=== PATIENT | female | born 1955 | race Caucasian/White ===

== ENCOUNTER 2019-09-12 16:53 | Inpatient (IN) ==
[2019-09-12] MEDS ORDERED: D5% in Water 1,000 ML IVC PRN (22:00)
[2019-09-12] MEDS ORDERED: Dextrose Gel 15 GM/37.5 ML TUBE PO PRN ×2 (22:00)
[2019-09-12] MEDS ORDERED: *HR* Dextrose 50 % in Water (Syg) 50 ML SYRINGE IVP PRN (22:00)
[2019-09-12] MEDS ORDERED: Perflutren Lipid Microsphere 1.3 ML in 0.9 % Sodium Chloride 8.7 ML IVP ONE (22:04)
[2019-09-12] MEDS ORDERED: Insulin LISPRO 300 UNITS/3 ML VIAL SQ SCH (22:15)
[2019-09-12] MEDS ORDERED: 0.9 % Sodium Chloride 1,000 ML IVC SCH (23:45)
[2019-09-12] MEDS ORDERED: Naloxone 0.4 MG/ML INJ IVP PRN (23:50)
[2019-09-12] MEDS ORDERED: Acetaminophen 325 MG TABLET PO PRN (23:50)
[2019-09-12] MEDS ORDERED: Ondansetron 4 MG/2 ML VIAL IVP PRN (23:50)
[2019-09-13] MEDS: Levalbuterol Neb 1.25 MG/3 ML IH SCH ×5 (00:06→22:38)
[2019-09-13] MEDS: Insulin LISPRO 300 UNITS/3 ML VIAL SQ SCH ×4 (00:38→15:49)
[2019-09-13] MEDS ORDERED: 0.9 % Sodium Chloride 1,000 ML IVC SCH ×2 (00:49)
[2019-09-13 02:23] LABS: Hematocrit 34.9 % (35.3-44.9); Hemoglobin 12.2 g/dL (11.5-15.4); Mean Corpuscular Hemoglobin 30.6 pg (28.0-33.3); Mean Corpuscular Volume 87.5 fL (83.0-100.0); Mean Platelet Volume 10.2 fL (9.4-12.4); Platelet Count 144 K/mcL (140-400); Red Blood Count 3.99 M/mcL (3.82-4.97); Red Cell Distribution Width 12.4 % (11.5-14.5)
[2019-09-13 02:44] LABS: BUN/Creatinine Ratio 19 (6-26); Blood Urea Nitrogen 16 mg/dL (8-23); Calcium 8.2 mg/dL (8.6-10.3); Carbon Dioxide 24 mEq/L (23-29); Chloride 101 mEq/L (98-107); Cholesterol 182 mg/dL (< 200); Glucose 270 mg/dL (70-105); HDL Cholesterol 46 mg/dL (40-59); LDL Cholesterol,Calculated 114 mg/dL (0-99); Magnesium 1.1 mg/dL (1.6-2.6); Osmolality,Calculated 287 (280-300); Phosphorous 3.1 mg/dL (2.7-4.5); Potassium 3.4 mEq/L (3.5-5.1); Sodium 133 mEq/L (136-145); Triglycerides 111 mg/dL (< 150); eGFR For African Americans > 60 (> 60); eGFR For Non-African Americans > 60 (> 60)
[2019-09-13] MEDS ORDERED: Insulin LISPRO 300 UNITS/3 ML VIAL SQ SCH (07:30)
[2019-09-13 08:54] LABS: Troponin I 0.04 ng/mL (< 0.04)
[2019-09-13] MEDS ORDERED: *HR* FentaNYL (PF) 100 MCG/2 ML VIAL ONE ×3 (08:55→11:35)
[2019-09-13] MEDS ORDERED: *HR* Succinylcholine 200 MG/10 ML VIAL IVP ONE (08:55)
[2019-09-13] MEDS ORDERED: Ondansetron 4 MG/2 ML VIAL ONE (08:55)
[2019-09-13] MEDS ORDERED: *HR* Propofol 200 MG/20 ML VIAL IVP ONE (08:55)
[2019-09-13] MEDS ORDERED: *HR* Midazolam HCl 2 MG/2 ML VIAL ONE (08:55)
[2019-09-13] MEDS ORDERED: Lidocaine -MPF 2% 2 ML VIAL ONE (08:55)
[2019-09-13] MEDS ORDERED: *HR* HYDROmorphone (PF) 1 MG/ML SYRINGE IVP PRN ×2 (09:16→11:53)
[2019-09-13] MEDS ORDERED: *HR* Promethazine 25 MG/ML VIAL IVP PRN ×2 (09:16→11:53)
[2019-09-13] MEDS ORDERED: *HR* OxyCODONE Immed Rel 5 MG TABLET PO PRN ×2 (09:16→11:53)
[2019-09-13] MEDS ORDERED: Ringers Solution, Lactated 1,000 ML IVC SCH (09:30)
[2019-09-13] MEDS ORDERED: Potassium Chloride Elixir 20 MEQ/15 ML UDC PO SCH ×2 (09:45→13:45)
[2019-09-13] MEDS ORDERED: Ethanol\\Acetic Acid\\Na Ace\\Ben 1,000 ML IRRIG.SOLN IR ONE (09:47)
[2019-09-13] MEDS ORDERED: *HR* Rocuronium Bromide 50 MG/5 ML VIAL ONE (09:49)
[2019-09-13 09:55] LABS: Estimated Average Glucose 163 mg/dl
[2019-09-13] MEDS ORDERED: CeFAZolin Syr 2,000MG/20 ML 2,000 MG/20 ML SYRINGE IVPB ONE (10:06)
[2019-09-13] MEDS ORDERED: Lidocaine HCL 4 ML Topical Solution (Laryng-O-Jet Kit Sterile Pak) TP ONE (10:07)
[2019-09-13] MEDS ORDERED: *HR* PHENYLEPHRINE 1,000 MCG/10 ML SYRINGE IVP ONE (10:25)
[2019-09-13] MEDS ORDERED: Dexamethasone 4 MG/ML VIAL ONE (10:40)
[2019-09-13] MEDS ORDERED: Naloxone 0.4 MG/ML INJ IVP PRN (11:53)
[2019-09-13] MEDS ORDERED: Ondansetron 4 MG/2 ML VIAL IVP PRN (11:53)
[2019-09-13] MEDS ORDERED: D5% in Water 1,000 ML IVC PRN (11:53)
[2019-09-13] MEDS ORDERED: *HR* Dextrose 50 % in Water (Syg) 50 ML SYRINGE IVP PRN (11:53)
[2019-09-13] MEDS ORDERED: Acetaminophen 325 MG TABLET PO PRN (11:53)
[2019-09-13] MEDS ORDERED: Dextrose Gel 15 GM/37.5 ML TUBE PO PRN ×2 (11:53)
[2019-09-13] MEDS: Ringers Solution, Lactated 1,000 ML IVC SCH (14:04)
[2019-09-13] MEDS ORDERED: *HR* Warfarin 2.5 MG TABLET PO ONE (19:36)
[2019-09-14] MEDS: Levalbuterol Neb 1.25 MG/3 ML IH SCH ×4 (04:14→22:27)
[2019-09-14 07:52] LABS: Hematocrit 32.2 % (35.3-44.9); Hemoglobin 10.8 g/dL (11.5-15.4); Mean Corpuscular HGB Conc 33.5 g/dL (31.6-35.5); Mean Corpuscular Hemoglobin 30.1 pg (28.0-33.3); Mean Corpuscular Volume 89.7 fL (83.0-100.0); Mean Platelet Volume 10.5 fL (9.4-12.4); Platelet Count 132 K/mcL (140-400); Red Blood Count 3.59 M/mcL (3.82-4.97); Red Cell Distribution Width 12.2 % (11.5-14.5); White Blood Count 6.4 K/mcL (4.3-11.1)
[2019-09-14 08:08] LABS: BUN/Creatinine Ratio 22 (6-26); Blood Urea Nitrogen 14 mg/dL (8-23); Calcium 8.6 mg/dL (8.6-10.3); Carbon Dioxide 26 mEq/L (23-29); Chloride 100 mEq/L (98-107); Glucose 302 mg/dL (70-105); Osmolality,Calculated 288 (280-300); Potassium 4.1 mEq/L (3.5-5.1); Sodium 133 mEq/L (136-145); eGFR For African Americans > 60 (> 60); eGFR For Non-African Americans > 60 (> 60)
[2019-09-14] MEDS ORDERED: Dextrose Gel 15 GM/37.5 ML TUBE PO PRN ×2 (10:09)
[2019-09-14] MEDS ORDERED: *HR* Dextrose 50 % in Water (Syg) 50 ML SYRINGE IVP PRN (10:09)
[2019-09-14] MEDS ORDERED: D5% in Water 1,000 ML IVC PRN (10:09)
[2019-09-14 12:39] LABS: Creatine Kinase 538 Units/L (30-223); Magnesium 1.6 mg/dL (1.6-2.6)
[2019-09-14] MEDS: Insulin LISPRO 300 UNITS/3 ML VIAL SQ SCH ×3 (13:33→20:35)
[2019-09-14] MEDS: Ringers Solution, Lactated 1,000 ML IVC SCH (19:21)
[2019-09-14] MEDS: 0.9 % Sodium Chloride 1,000 ML IVC SCH ×3 (19:22→23:18)
[2019-09-14] MEDS: Gabapentin 100 MG CAPSULE PO SCH (20:34)
[2019-09-14] MEDS: Insulin DETEMIR 100 UNIT/ML X5UNITS SQ SCH (20:35)
[2019-09-15] MEDS: Levalbuterol Neb 1.25 MG/3 ML IH SCH ×4 (04:24→22:11)
[2019-09-15 05:02] LABS: Hematocrit 28.5 % (35.3-44.9); Hemoglobin 9.9 g/dL (11.5-15.4); Mean Corpuscular HGB Conc 34.7 g/dL (31.6-35.5); Mean Corpuscular Volume 86.4 fL (83.0-100.0); Mean Platelet Volume 10.6 fL (9.4-12.4); Platelet Count 137 K/mcL (140-400); Red Cell Distribution Width 12.4 % (11.5-14.5); White Blood Count 5.3 K/mcL (4.3-11.1)
[2019-09-15 05:19] LABS: BUN/Creatinine Ratio 21 (6-26); Blood Urea Nitrogen 12 mg/dL (8-23); Calcium 8.2 mg/dL (8.6-10.3); Carbon Dioxide 23 mEq/L (23-29); Chloride 102 mEq/L (98-107); Glucose 221 mg/dL (70-105); Osmolality,Calculated 281 (280-300); Potassium 3.8 mEq/L (3.5-5.1); Sodium 132 mEq/L (136-145); eGFR For African Americans > 60 (> 60); eGFR For Non-African Americans > 60 (> 60)
[2019-09-15] MEDS: 0.9 % Sodium Chloride 1,000 ML IVC SCH (09:01)
[2019-09-15] MEDS: Gabapentin 100 MG CAPSULE PO SCH ×2 (09:01→21:06)
[2019-09-15] MEDS: Insulin LISPRO 300 UNITS/3 ML VIAL SQ SCH ×4 (09:02→22:05)
[2019-09-15] MEDS ORDERED: 0.9 % Sodium Chloride 250 ML IVC ONE (17:09)
[2019-09-15 17:53] LABS: Hematocrit 28.1 % (35.3-44.9)
[2019-09-15 18:36] LABS: Bilirubin,Urine Negative (Negative); Blood,Urine Negative (Negative); Clarity,Urine Clear (Clear); Color,Urine Yellow (Yellow); Glucose,Urine (UA) 500 mg/dL (Normal); Ketones,Urine Negative (Negative); Leukocyte Esterase,Urine Negative (Negative); Nitrite,Urine Negative (Negative); Protein,Urine 30 mg/dL (Neg-Trace); Specific Gravity,Urine 1.027 (1.010-1.025)
[2019-09-15 18:50] LABS: Bacteria,Urine None Seen per hpf (None-Few); Hyaline Casts,Urine None Seen per lpf (None-Few); RBC,Urine 0-3 per hpf (0-3); Squamous Epithelial Cell,Urine Many per lpf (None-Few); WBC,Urine 0-3 per hpf (0-3)
[2019-09-15] MEDS: Insulin DETEMIR 100 UNIT/ML X5UNITS SQ SCH (22:05)
[2019-09-16] MEDS: 0.9 % Sodium Chloride 1,000 ML IVC SCH ×2 (02:21→09:17)
[2019-09-16] MEDS: Levalbuterol Neb 1.25 MG/3 ML IH SCH ×4 (03:17→21:11)
[2019-09-16 04:48] LABS: Hematocrit 30.2 % (35.3-44.9); Hemoglobin 10.6 g/dL (11.5-15.4)
[2019-09-16] MEDS: Insulin LISPRO 300 UNITS/3 ML VIAL SQ SCH ×4 (07:58→21:05)
[2019-09-16] MEDS: *HR* Enoxaparin 40 MG/0.4 ML SYRINGE SQ SCH (09:04)
[2019-09-16] MEDS: Gabapentin 100 MG CAPSULE PO SCH ×2 (09:05→21:05)
[2019-09-16] MEDS: Insulin DETEMIR 100 UNIT/ML X5UNITS SQ SCH (21:06)
[2019-09-17] MEDS: Levalbuterol Neb 1.25 MG/3 ML IH SCH ×4 (03:51→22:25)
[2019-09-17] MEDS: *HR* Enoxaparin 40 MG/0.4 ML SYRINGE SQ SCH (05:49)
[2019-09-17] MEDS: Gabapentin 100 MG CAPSULE PO SCH (09:03)
[2019-09-17] MEDS: Acetaminophen 325 MG TABLET PO PRN ×2 (09:10→17:17)
[2019-09-17] MEDS: Insulin LISPRO 300 UNITS/3 ML VIAL SQ SCH ×4 (09:11→21:30)
[2019-09-17 12:10] LABS: Hematocrit 30.4 % (35.3-44.9); Hemoglobin 10.6 g/dL (11.5-15.4)
[2019-09-17] MEDS: Insulin DETEMIR 100 UNIT/ML X5UNITS SQ SCH (21:30)
[2019-09-18] MEDS: Levalbuterol Neb 1.25 MG/3 ML IH SCH ×4 (03:51→22:32)
[2019-09-18] MEDS: *HR* Enoxaparin 40 MG/0.4 ML SYRINGE SQ SCH (06:06)
[2019-09-18] MEDS: Acetaminophen 325 MG TABLET PO PRN (08:35)
[2019-09-18] MEDS: Insulin LISPRO 300 UNITS/3 ML VIAL SQ SCH ×4 (08:35→21:17)
[2019-09-18] MEDS: Insulin DETEMIR 100 UNIT/ML X5UNITS SQ SCH (21:22)
[2019-09-19] MEDS: Levalbuterol Neb 1.25 MG/3 ML IH SCH ×3 (04:18→15:16)
[2019-09-19] MEDS: *HR* Enoxaparin 40 MG/0.4 ML SYRINGE SQ SCH (06:00)
[2019-09-19] MEDS: Insulin LISPRO 300 UNITS/3 ML VIAL SQ SCH ×3 (08:06→17:40)
[2019-09-19 14:25] VITALS: BP 95/61
== END 2019-09-19 18:34 | disposition home health service (06) | DRG 301 ==
LOC: 3ANU → SUATTDRO 23:58
PROVIDERS: ADMIT Internal Medicine; ATTEND Internal Medicine

== ENCOUNTER 2021-11-19 17:15 | Inpatient (IN) ==
[2021-11-19] MEDS ORDERED: Acetaminophen 325 MG TABLET PO PRN (20:57)
[2021-11-19] MEDS ORDERED: Ondansetron ODT 4 MG TAB.RAPDIS SL PRN (20:57)
[2021-11-19] MEDS ORDERED: Naloxone 0.4 MG/ML INJ IVP PRN (20:57)
[2021-11-19] MEDS ORDERED: *HR* Heparin 5,000 UNIT/ML VIAL IVP PRN ×2 (20:59)
[2021-11-19] MEDS: Heparin 25,000UNIT/250ML 1/2NS 25,000 UNIT/250 ML IV.SOLN IVC SCH (21:28)
[2021-11-19] MEDS ORDERED: Dextrose Gel 15 GM/37.5 ML TUBE PO PRN ×2 (22:51)
[2021-11-19] MEDS ORDERED: *HR* Dextrose 50 % in Water (Syg) 50 ML SYRINGE IVP PRN (22:51)
[2021-11-19] MEDS ORDERED: D5% in Water 1,000 ML IVC PRN (22:51)
[2021-11-20] MEDS: Insulin LISPRO 300 UNITS/3 ML VIAL SUBQ SCH ×4 (00:01→17:50)
[2021-11-20 06:45] LABS: Basophils % 0.6 %; Eosinophils # 0.1 K/mcL (0.0-0.6); Eosinophils % 1.9 %; Hematocrit 35.6 % (35.3-44.9); Hemoglobin 11.5 g/dL (11.5-15.4); Immature Granulocytes % 0.2 % (0-4); Lymphocytes # 1.6 K/mcL (0.6-4.6); Lymphocytes % 35.3 %; Mean Corpuscular HGB Conc 32.3 g/dL (31.6-35.5); Mean Corpuscular Hemoglobin 27.8 pg (28.0-33.3); Mean Corpuscular Volume 86.2 fL (83.0-100.0); Mean Platelet Volume 10.3 fL (9.4-12.4); Monocytes # 0.3 K/mcL (0.0-1.3); Monocytes % 6.7 %; Neutrophils # 2.6 K/mcL (1.6-8.9); Platelet Count 152 K/mcL (140-400); Red Blood Count 4.13 M/mcL (3.82-4.97); Red Cell Distribution Width 13.2 % (11.5-14.5); Segmented Neutrophils % 55.3 %; White Blood Count 4.6 K/mcL (4.3-11.1)
[2021-11-20] MEDS ORDERED: Perflutren Lipid Microsphere 1.3 ML in 0.9 % Sodium Chloride 8.7 ML IVP PRN (07:42)
[2021-11-20 07:49] LABS: BUN/Creatinine Ratio 19 (6-26); Blood Urea Nitrogen 18 mg/dL (8-23); Calcium 9.1 mg/dL (8.6-10.3); Carbon Dioxide 26 mEq/L (23-29); Chloride 103 mEq/L (98-107); Glucose 137 mg/dL (70-105); Magnesium 1.6 mg/dL (1.6-2.6); Osmolality,Calculated 292 (280-300); Potassium 3.6 mEq/L (3.5-5.1); Sodium 139 mEq/L (136-145); eGFR For African Americans > 60 (> 60); eGFR For Non-African Americans 57 (> 60)
[2021-11-20] MEDS: Furosemide 40 MG TABLET PO SCH (17:50)
[2021-11-20] MEDS: Budesonide/Formoterol 80/4.5 1 PUFF INH IH SCH (20:11)
[2021-11-20] MEDS: Heparin 25,000UNIT/250ML 1/2NS 25,000 UNIT/250 ML IV.SOLN IVC SCH (20:38)
[2021-11-20] MEDS: QUEtiapine Fumarate 100 MG TABLET PO SCH (20:43)
[2021-11-20] MEDS ORDERED: Insulin DETEMIR 100 UNIT/ML X5UNITS SUBQ SCH (21:00)
[2021-11-20] MEDS ORDERED: *HR* LORazepam 2 MG/ML VIAL IVP ONE (23:07)
[2021-11-21] MEDS: Insulin LISPRO 300 UNITS/3 ML VIAL SUBQ SCH ×4 (00:03→16:54)
[2021-11-21 05:38] LABS: Hematocrit 32.8 % (35.3-44.9); Mean Corpuscular HGB Conc 33.5 g/dL (31.6-35.5); Mean Corpuscular Hemoglobin 28.8 pg (28.0-33.3); Mean Corpuscular Volume 85.9 fL (83.0-100.0); Mean Platelet Volume 10.1 fL (9.4-12.4); Platelet Count 149 K/mcL (140-400); Red Blood Count 3.82 M/mcL (3.82-4.97); Red Cell Distribution Width 13.1 % (11.5-14.5); White Blood Count 4.3 K/mcL (4.3-11.1)
[2021-11-21 06:02] LABS: BUN/Creatinine Ratio 20 (6-26); Blood Urea Nitrogen 19 mg/dL (8-23); Calcium 8.8 mg/dL (8.6-10.3); Carbon Dioxide 26 mEq/L (23-29); Chloride 101 mEq/L (98-107); Glucose 153 mg/dL (70-105); Osmolality,Calculated 289 (280-300); Potassium 3.7 mEq/L (3.5-5.1); Sodium 137 mEq/L (136-145); eGFR For African Americans > 60 (> 60); eGFR For Non-African Americans 57 (> 60)
[2021-11-21] MEDS ORDERED: Haloperidol Lactate 5 MG/ML VIAL IVP PRN (07:31)
[2021-11-21] MEDS: Furosemide 40 MG TABLET PO SCH (08:54)
[2021-11-21] MEDS: QUEtiapine Fumarate 25 MG TABLET PO SCH (08:54)
[2021-11-21] MEDS: Tiotropium 10 INH DOSE IH SCH (11:29)
[2021-11-21] MEDS: Budesonide/Formoterol 80/4.5 1 PUFF INH IH SCH ×2 (11:30→20:02)
[2021-11-21] MEDS: Apixaban 5 MG TABLET PO SCH ×2 (11:47→19:58)
[2021-11-21] MEDS: Melatonin 3 MG TABLET PO PRN (19:58)
[2021-11-21] MEDS: QUEtiapine Fumarate 100 MG TABLET PO SCH (19:58)
[2021-11-22] MEDS: Insulin LISPRO 300 UNITS/3 ML VIAL SUBQ SCH ×5 (00:12→20:20)
[2021-11-22 01:20] LABS: Hematocrit 33.2 % (35.3-44.9); Hemoglobin 10.8 g/dL (11.5-15.4); Mean Corpuscular HGB Conc 32.5 g/dL (31.6-35.5); Mean Corpuscular Hemoglobin 27.6 pg (28.0-33.3); Mean Corpuscular Volume 84.7 fL (83.0-100.0); Mean Platelet Volume 10.2 fL (9.4-12.4); Platelet Count 147 K/mcL (140-400); Red Blood Count 3.92 M/mcL (3.82-4.97); Red Cell Distribution Width 13.2 % (11.5-14.5); White Blood Count 4.4 K/mcL (4.3-11.1)
[2021-11-22 01:34] LABS: BUN/Creatinine Ratio 18 (6-26); Blood Urea Nitrogen 20 mg/dL (8-23); Calcium 8.8 mg/dL (8.6-10.3); Carbon Dioxide 23 mEq/L (23-29); Chloride 101 mEq/L (98-107); Glucose 207 mg/dL (70-105); Osmolality,Calculated 287 (280-300); Potassium 4.1 mEq/L (3.5-5.1); Sodium 134 mEq/L (136-145); eGFR For African Americans > 60 (> 60); eGFR For Non-African Americans 50 (> 60)
[2021-11-22] MEDS: Budesonide/Formoterol 80/4.5 1 PUFF INH IH SCH ×2 (07:36→19:20)
[2021-11-22] MEDS: Tiotropium 10 INH DOSE IH SCH (07:36)
[2021-11-22] MEDS: Furosemide 40 MG TABLET PO SCH (09:02)
[2021-11-22] MEDS: QUEtiapine Fumarate 25 MG TABLET PO SCH (09:02)
[2021-11-22] MEDS: Apixaban 5 MG TABLET PO SCH ×2 (09:02→20:20)
[2021-11-22] MEDS ORDERED: E-Z-HD (BARIUM SULF) SUSPENSION PO ONE (14:04)
[2021-11-22] MEDS ORDERED: E-Z-PAQUE (BARIUM SULF) SUSP 1 BOTTLE PO ONE (14:04)
[2021-11-22] MEDS: QUEtiapine Fumarate 100 MG TABLET PO SCH (20:20)
[2021-11-22] MEDS: Insulin DETEMIR 100 UNIT/ML X5UNITS SUBQ SCH (20:21)
[2021-11-23] MEDS: Tiotropium 10 INH DOSE IH SCH (07:55)
[2021-11-23] MEDS: Budesonide/Formoterol 80/4.5 1 PUFF INH IH SCH ×2 (07:55→19:18)
[2021-11-23] MEDS: Piperacillin/Tazobactam 3.375 GM in 0.9 % Sodium Chloride Mini Bag 100 ML IVPB SCH ×2 (08:13→15:41)
[2021-11-23] MEDS: MethylPREDNISolone 40 MG/ML VIAL IVP SCH (08:14)
[2021-11-23] MEDS: QUEtiapine Fumarate 25 MG TABLET PO SCH (08:14)
[2021-11-23] MEDS: Apixaban 5 MG TABLET PO SCH ×2 (08:14→20:31)
[2021-11-23] MEDS: Insulin LISPRO 300 UNITS/3 ML VIAL SUBQ SCH ×4 (08:15→20:32)
[2021-11-23] MEDS: Insulin DETEMIR 100 UNIT/ML X5UNITS SUBQ SCH (20:32)
[2021-11-23] MEDS: QUEtiapine Fumarate 100 MG TABLET PO SCH (20:32)
[2021-11-24] MEDS: Piperacillin/Tazobactam 3.375 GM in 0.9 % Sodium Chloride Mini Bag 100 ML IVPB SCH ×4 (00:16→23:45)
[2021-11-24] MEDS: Insulin LISPRO 300 UNITS/3 ML VIAL SUBQ SCH ×4 (07:13→20:33)
[2021-11-24] MEDS: MethylPREDNISolone 40 MG/ML VIAL IVP SCH (07:14)
[2021-11-24] MEDS: Apixaban 5 MG TABLET PO SCH ×2 (07:14→20:32)
[2021-11-24] MEDS: QUEtiapine Fumarate 25 MG TABLET PO SCH (07:14)
[2021-11-24] MEDS: Budesonide/Formoterol 80/4.5 1 PUFF INH IH SCH ×2 (08:04→20:23)
[2021-11-24] MEDS: Tiotropium 10 INH DOSE IH SCH (08:04)
[2021-11-24] MEDS: QUEtiapine Fumarate 100 MG TABLET PO SCH (20:32)
[2021-11-24] MEDS: Insulin DETEMIR 100 UNIT/ML X5UNITS SUBQ SCH (20:33)
[2021-11-25 02:18] LABS: Hematocrit 32.5 % (35.3-44.9); Hemoglobin 10.8 g/dL (11.5-15.4); Mean Corpuscular HGB Conc 33.2 g/dL (31.6-35.5); Mean Corpuscular Hemoglobin 28.2 pg (28.0-33.3); Mean Corpuscular Volume 84.9 fL (83.0-100.0); Mean Platelet Volume 10.6 fL (9.4-12.4); Platelet Count 150 K/mcL (140-400); Red Blood Count 3.83 M/mcL (3.82-4.97); Red Cell Distribution Width 13.2 % (11.5-14.5); White Blood Count 6.1 K/mcL (4.3-11.1)
[2021-11-25 02:39] LABS: BUN/Creatinine Ratio 20 (6-26); Blood Urea Nitrogen 22 mg/dL (8-23); Calcium 9.3 mg/dL (8.6-10.3); Carbon Dioxide 25 mEq/L (23-29); Chloride 100 mEq/L (98-107); Glucose 166 mg/dL (70-105); Osmolality,Calculated 289 (280-300); Potassium 3.5 mEq/L (3.5-5.1); Sodium 136 mEq/L (136-145); eGFR For African Americans > 60 (> 60); eGFR For Non-African Americans 50 (> 60)
[2021-11-25] MEDS: Insulin LISPRO 300 UNITS/3 ML VIAL SUBQ SCH ×4 (07:15→20:18)
[2021-11-25] MEDS: Budesonide/Formoterol 80/4.5 1 PUFF INH IH SCH ×2 (07:26→19:45)
[2021-11-25] MEDS: Tiotropium 10 INH DOSE IH SCH (07:26)
[2021-11-25] MEDS: Apixaban 5 MG TABLET PO SCH ×2 (07:33→19:55)
[2021-11-25] MEDS: QUEtiapine Fumarate 25 MG TABLET PO SCH (07:33)
[2021-11-25] MEDS: Piperacillin/Tazobactam 3.375 GM in 0.9 % Sodium Chloride Mini Bag 100 ML IVPB SCH ×2 (07:34→16:05)
[2021-11-25] MEDS: MethylPREDNISolone 40 MG/ML VIAL IVP SCH (07:34)
[2021-11-25] MEDS: Melatonin 3 MG TABLET PO PRN (19:55)
[2021-11-25] MEDS: QUEtiapine Fumarate 100 MG TABLET PO SCH (19:55)
[2021-11-25] MEDS: Insulin DETEMIR 100 UNIT/ML X5UNITS SUBQ SCH (20:18)
[2021-11-26] MEDS: Piperacillin/Tazobactam 3.375 GM in 0.9 % Sodium Chloride Mini Bag 100 ML IVPB SCH ×2 (00:25→07:58)
[2021-11-26 03:50] VITALS: TEMP 97.8; O2SAT 93
[2021-11-26 06:29] VITALS: BP 121/47; PULSE 70
[2021-11-26] MEDS: Insulin LISPRO 300 UNITS/3 ML VIAL SUBQ SCH ×2 (07:04→10:57)
[2021-11-26] MEDS: Apixaban 5 MG TABLET PO SCH (07:57)
[2021-11-26] MEDS: MethylPREDNISolone 40 MG/ML VIAL IVP SCH (07:57)
[2021-11-26] MEDS: QUEtiapine Fumarate 25 MG TABLET PO SCH (07:57)
[2021-11-26] MEDS: Tiotropium 10 INH DOSE IH SCH (08:02)
[2021-11-26] MEDS: Budesonide/Formoterol 80/4.5 1 PUFF INH IH SCH (08:03)
[2021-11-26] MEDS ORDERED: predniSONE 20 MG TABLET PO SCH (09:00)
== END 2021-11-26 16:40 | DRG 175 ==
LOC: 2NENU → SUATTDRO 11-20 10:39
PROVIDERS: ADMIT Family Medicine; ATTEND Internal Medicine